=== PATIENT | male | born 1955 | race Caucasian/White ===

== ENCOUNTER 2021-03-20 17:29 | Emergency (ER) | payer OTHER ==
[2021-03-20 18:49] LABS: HCT 44.6 % (42.0-52.0); HGB 14.9 g/dl (13.2-18.0); MCH 30.3 pg (25.0-31.0); MCHC 33.4 g/dL (32.0-36.0); MCV 90.7 fL (78.0-100.0); MPV 9.9 fL (6.0-9.5); RBC 4.92 M/uL (4.70-6.00); WBC 8.9 K/uL (4.0-10.5)
[2021-03-20 19:05] LABS: ALBUMIN 3.9 g/dL (3.4-5.0); BILIRUBIN - TOTAL 0.6 mg/dL (0.2-1.0); BUN/CREAT RATIO (CALC) 33.8 RATIO; CREATININE 0.71 mg/dL (0.67-1.17); GLOBULIN (CALCULATION) 4.3 g/dL; TOTAL PROTEIN 8.2 g/dL (6.4-8.2)
[2021-03-20] MEDS ORDERED: OXY-IR 5MG5 MG PO ×2 (20:30→20:31)
== END 2021-03-20 21:15 | disposition home or self-care (01) ==
LOC: FER 17:29
PROVIDERS: Emergency Medicine
DX: S22.41XA Multiple fractures of ribs, right side, initial encounter for closed fracture (principal); E11.9 Type 2 diabetes mellitus without complications; Z79.4 Long term (current) use of insulin; W11.XXXA Fall on and from ladder, initial encounter; Y92.009 Unspecified place in unspecified non-institutional (private) residence as the place of occurrence of the external cause
CPT/HCPCS: 36415; 71260; 80053; 83690; J7030; Q9967